=== PATIENT | male | born 1955 | race Caucasian/White ===

== ENCOUNTER → 2023-01-15 14:21 | Outpatient (CLI) | payer MEDICARE, MEDICAID, SELFPAY | PROVIDERS: PCP Nurse Practitioner; Referring Provider Nurse Practitioner; Visit Provider Surgery | DX: G60.3 Idiopathic progressive neuropathy (principal); L97.512 Non-pressure chronic ulcer of other part of right foot with fat layer exposed; L84 Corns and callosities | CPT/HCPCS: 11042; 99203; 99213 ==

== ENCOUNTER → 2023-01-21 13:35 | Outpatient (CLI) | payer MEDICARE, MEDICAID, SELFPAY | PROVIDERS: PCP Nurse Practitioner; Referring Provider Nurse Practitioner; Visit Provider Surgery | DX: G60.3 Idiopathic progressive neuropathy (principal); L97.512 Non-pressure chronic ulcer of other part of right foot with fat layer exposed; R60.0 Localized edema | CPT/HCPCS: 11042 ==

== ENCOUNTER → 2023-01-23 12:58 | Outpatient (CLI) | payer MEDICARE, MEDICAID, SELFPAY | PROVIDERS: PCP Nurse Practitioner; Referring Provider Nurse Practitioner; Visit Provider Physician Assistant | DX: G60.3 Idiopathic progressive neuropathy (principal); L97.512 Non-pressure chronic ulcer of other part of right foot with fat layer exposed; R60.0 Localized edema | CPT/HCPCS: 29445 ==

== ENCOUNTER → 2023-01-30 11:46 | Outpatient (CLI) | payer MEDICARE, MEDICAID, SELFPAY | PROVIDERS: PCP Nurse Practitioner; Referring Provider Nurse Practitioner; Visit Provider Surgery | DX: G60.3 Idiopathic progressive neuropathy (principal); L97.512 Non-pressure chronic ulcer of other part of right foot with fat layer exposed | CPT/HCPCS: 11042; 87070; 87075; 87147; 87205; 99213 ==

== ENCOUNTER → 2023-02-04 13:00 | Outpatient (CLI) | payer MEDICARE, MEDICAID, SELFPAY | PROVIDERS: PCP Nurse Practitioner; Referring Provider Nurse Practitioner; Visit Provider Surgery | DX: G60.3 Idiopathic progressive neuropathy (principal); L97.512 Non-pressure chronic ulcer of other part of right foot with fat layer exposed | CPT/HCPCS: 11042 ==

== ENCOUNTER → 2023-02-12 13:55 | Outpatient (CLI) | payer MEDICARE, MEDICAID, SELFPAY | PROVIDERS: PCP Nurse Practitioner; Referring Provider Nurse Practitioner; Visit Provider Surgery | DX: G62.9 Polyneuropathy, unspecified (principal); L97.512 Non-pressure chronic ulcer of other part of right foot with fat layer exposed; R60.0 Localized edema; I87.2 Venous insufficiency (chronic) (peripheral); I10 Essential (primary) hypertension; F17.210 Nicotine dependence, cigarettes, uncomplicated | CPT/HCPCS: 11042 ==

== ENCOUNTER → 2023-02-18 10:48 | Outpatient (CLI) | payer MEDICARE, MEDICAID, SELFPAY | PROVIDERS: PCP Nurse Practitioner; Referring Provider Nurse Practitioner; Visit Provider Surgery | DX: I87.2 Venous insufficiency (chronic) (peripheral) (principal); L97.512 Non-pressure chronic ulcer of other part of right foot with fat layer exposed; R60.0 Localized edema; L84 Corns and callosities; G57.83 Other specified mononeuropathies of bilateral lower limbs | CPT/HCPCS: 11042; 99212; 99213 ==

== ENCOUNTER → 2023-02-25 11:26 | Outpatient (CLI) | payer MEDICARE, MEDICAID, SELFPAY | PROVIDERS: PCP Nurse Practitioner; Referring Provider Nurse Practitioner; Visit Provider Surgery | DX: G60.3 Idiopathic progressive neuropathy (principal); L97.512 Non-pressure chronic ulcer of other part of right foot with fat layer exposed; I87.2 Venous insufficiency (chronic) (peripheral); L03.115 Cellulitis of right lower limb; F17.210 Nicotine dependence, cigarettes, uncomplicated | CPT/HCPCS: 11042; 99213 ==

== ENCOUNTER → 2023-03-04 11:35 | Outpatient (CLI) | payer MEDICARE, MEDICAID, SELFPAY | PROVIDERS: PCP Nurse Practitioner; Referring Provider Nurse Practitioner; Visit Provider Surgery | DX: G60.3 Idiopathic progressive neuropathy (principal); L97.512 Non-pressure chronic ulcer of other part of right foot with fat layer exposed | CPT/HCPCS: 99212 ==

== ENCOUNTER → 2023-03-11 14:19 | Outpatient (CLI) | payer MEDICARE, MEDICAID, SELFPAY | PROVIDERS: PCP Nurse Practitioner; Referring Provider Nurse Practitioner; Visit Provider Surgery | DX: G60.3 Idiopathic progressive neuropathy (principal); L97.512 Non-pressure chronic ulcer of other part of right foot with fat layer exposed; R60.0 Localized edema | CPT/HCPCS: 11042 ==

== ENCOUNTER → 2023-03-18 11:26 | Outpatient (CLI) | payer MEDICARE, MEDICAID, SELFPAY | PROVIDERS: PCP Nurse Practitioner; Referring Provider Nurse Practitioner; Visit Provider Surgery | DX: G60.3 Idiopathic progressive neuropathy (principal); L97.512 Non-pressure chronic ulcer of other part of right foot with fat layer exposed | CPT/HCPCS: 11042; 99213 ==

== ENCOUNTER → 2023-03-25 11:25 | Outpatient (CLI) | payer MEDICARE, MEDICAID, SELFPAY | PROVIDERS: PCP Nurse Practitioner; Referring Provider Nurse Practitioner; Visit Provider Surgery | DX: G60.3 Idiopathic progressive neuropathy (principal); I87.2 Venous insufficiency (chronic) (peripheral); L97.512 Non-pressure chronic ulcer of other part of right foot with fat layer exposed; R60.0 Localized edema | CPT/HCPCS: 11042 ==

== ENCOUNTER → 2023-04-01 11:06 | Outpatient (CLI) | payer MEDICARE, MEDICAID, SELFPAY | PROVIDERS: PCP Nurse Practitioner; Referring Provider Nurse Practitioner; Visit Provider Surgery | DX: I87.2 Venous insufficiency (chronic) (peripheral) (principal); G60.3 Idiopathic progressive neuropathy; L97.512 Non-pressure chronic ulcer of other part of right foot with fat layer exposed; R60.0 Localized edema; F17.210 Nicotine dependence, cigarettes, uncomplicated | CPT/HCPCS: 15275; Q4196 ==

== ENCOUNTER → 2023-04-08 11:07 | Outpatient (CLI) | payer MEDICARE, MEDICAID, SELFPAY | PROVIDERS: PCP Nurse Practitioner; Referring Provider Nurse Practitioner; Visit Provider Surgery | DX: I87.2 Venous insufficiency (chronic) (peripheral) (principal); G60.3 Idiopathic progressive neuropathy; L97.512 Non-pressure chronic ulcer of other part of right foot with fat layer exposed; R60.0 Localized edema | CPT/HCPCS: 11042 ==

== ENCOUNTER → 2023-04-15 11:24 | Outpatient (CLI) | payer MEDICARE, MEDICAID, SELFPAY | PROVIDERS: PCP Nurse Practitioner; Referring Provider Nurse Practitioner; Visit Provider Surgery | DX: G60.3 Idiopathic progressive neuropathy (principal); L97.512 Non-pressure chronic ulcer of other part of right foot with fat layer exposed; R60.0 Localized edema | CPT/HCPCS: 11042; 99213 ==

== ENCOUNTER → 2023-04-22 11:39 | Outpatient (CLI) | payer MEDICARE, MEDICAID, SELFPAY | PROVIDERS: PCP Nurse Practitioner; Referring Provider Nurse Practitioner; Visit Provider Surgery | DX: G60.3 Idiopathic progressive neuropathy (principal); L97.512 Non-pressure chronic ulcer of other part of right foot with fat layer exposed | CPT/HCPCS: 11042; 99213 ==

== ENCOUNTER → 2023-04-29 11:26 | Outpatient (CLI) | payer MEDICARE, MEDICAID, SELFPAY | LOC: WC 11:27 | PROVIDERS: PCP Nurse Practitioner; Referring Provider Nurse Practitioner; Visit Provider Surgery | DX: G60.3 Idiopathic progressive neuropathy (principal); Z87.891 Personal history of nicotine dependence | CPT/HCPCS: 99213 ==

== ENCOUNTER → 2023-05-06 11:12 | Outpatient (CLI) | payer MEDICARE, MEDICAID, SELFPAY | PROVIDERS: PCP Nurse Practitioner; Referring Provider Nurse Practitioner; Visit Provider Surgery | DX: G62.9 Polyneuropathy, unspecified (principal); I87.2 Venous insufficiency (chronic) (peripheral); S99.911A Unspecified injury of right ankle, initial encounter; I10 Essential (primary) hypertension; F17.211 Nicotine dependence, cigarettes, in remission; Z87.2 Personal history of diseases of the skin and subcutaneous tissue | CPT/HCPCS: 99211; 99213 ==

== ENCOUNTER → 2023-05-21 11:16 | Outpatient (CLI) | payer MEDICARE, MEDICAID, SELFPAY ==
--- NOTE | 2023-05-21 | OV.WND_ITS ---
Progress Note Details Patient Name: Aashish Lord Patient Number: [id number] Clinician: Lien Lama RN Patient Date of : 1955 Physician / Remotely Piloted Vehicle Controller: Olaf Doyle Patient SUBJECTIVE Chief Complaint This information was obtained from the Patient. Concerns of wound on right foot reopening. Allergies No Known Allergies HPI This information was obtained from the Patient. The following HPI elements were documented for the patient's wound: Location: R foot Duration: 03/10/21 Context: neuropathic Associated Signs and Symptoms: none The patient is a 67-year-old male with HTN who returns today for surveillance of a neuropathic ulcer on plantar aspect over 1st metatarsal that was noted to be healed at his visit 04/22/23. Patient recently noted some slight drainage in his sock and was concerned that the ulcer was recurring. He has also had some pain and swelling of his right foot and ankle. He denies having any fever or chills. The patient did twist his ankle a few days ago and has noted some bruising. He does have a prior history of having venous insufficiency. The patient reports a good appetite and is taking some protein supplements. The patient has recently stopped smoking cigarettes. On today's visit the ulcer on the plantar right foot remains healed however there is some slight blood standing of the callus. No sign of infection. He does have some ankle and foot edema but there is no erythema. Patient is wearing new shoes but has not yet seen a sex crimes detective. The patient did sprained is ankle couple of weeks ago. X-rays did not show any evidence for fracture. Family History This information was obtained from the Patient. Unknown History- Father Heart Disease- Mother Hypertension- Mother Social History This information was obtained from the Patient. Former smoker: Quit 04/10/23 Alcohol Use: 4 beers per day Caffeine Use: 3/day Lives in: Apartment independently Marital Status: Single Aashish Lord [id number] 1955 Occupation: Disabled Medical History This information was obtained from the Patient. Patient has a medical history of: Current tobacco smoker (Pt reports quitting 04/10/23) Venous insufficiency Peripheral neuropathy Hypertension Additional Information Does patient have a history of Cancer? Yes? Complete all questions.: No Surgical History This information was obtained from the Patient. Patient has a surgical history of: Hernia repair- Review of Systems (ROS) This information was obtained from the Patient. Complaints and Symptoms Patient com plains of: Cardiovascular (Central): Dyspnea on Exertion Co-Morbid Conditions: Hypertension, Neuropathy , Smoking, Venous Insuffiency Neurological: Loss of Protective Sensation Respiratory: Cough, Shortness of Breath Patient denies com plaints or sy m ptom s related to: Cardiovascular (Central): Chest Pain Cardiovascular (Peripheral) Constitutional Symptoms (General Health): Chills, Fever, Loss of Appetite, Marked Weight Change Integumentary (Hair/Skin/Nails): Hemosiderin Staining Neurological: Weakness Prior Wound History OBJECTIVE Vitals Height/Length: 69 in (175.26 cm), Weight: 263.8 lbs (119.91 kgs), BMI: 39, Temperature: 98.5 ?F (36.94 ?C), Pulse: 81 bpm, Respiratory Rate: 18 breaths/min, Blood Pressure: 132/80 mmHg, Pulse Oximetry: 94 %. Physical Exam Constitutional: Vital signs reviewed and noted. Well developed, well nourished, and in no acute distress. Alert and oriented x3. Respiratory: Even respirations without use of accessory muscles. No intercoastal retractions noted. Even and non labored respiration. Integumentary (Hair, Skin): Aashish Lord [id number] 1955 small blood stain callus over had of 1st metatarsal. Edema right ankle and foot. See wound assessment. Neurological: decreased lower extremity sensation. Psychiatric: Orientation to time, place and person: Normal affect with normal thought pattern. Lower Extremity Assessment Edema Assessment: Left Extremity: Edema is present Compression Device In Use: Yes Device Used Correctly: Yes Device in Use: Compression Stockings Calf Measurement 34 cm from heel with left measurement of 41 cm Ankle Measurement 11 cm from heel with left measurement of 26 cm Foot Measurement 11 cm from great toe with left measurement of 24.5 cm Right Extremity: Edema is present Compression Device In Use: Yes Device Used Correctly: Yes Device in Use: Compression Stockings Calf Measurement 34 cm from heel with right measurement of 42.5 cm Ankle Measurement 11 cm from heel with right measurement of 26.5 cm Foot Measurement 11 cm from great toe with right measurement of 26.5 cm Vascular Assessment Left Extremity Pulses: Dorsalis Pedis: Palpable Right Extremity Pulses: Dorsalis Pedis: Palpable Left Extremity Colors, hair growth, and conditions: Extremity Color: Pigmented Hair Growth on Extremity: No Temperature of Extremity: Warm Capilary Refill: < 3 seconds Erythema: Yes Dependent Rubor: No Hyperpigmentation: Yes Lipodermatosclerosis: No Right Extremity Colors, hair growth, and conditions: Extremity Color: Pigmented Hair Growth on Extremity: No Temperature of Extremity: Warm Capilary Refill: < 3 seconds Erythema: Yes Dependent Rubor: No Hyperpigmentation: Yes Lipodermatosclerosis: No Off-loading: Left off-loading device in use: No Right off-loading device in use: No ASSESSMENT Active Problems ICD-10 S91.301A - Unspecified open wound, right foot, initial encounter (Encounter Diagnosis) G57.83 - Other specified mononeuropathies of bilateral lower limbs I87.2 - Venous insufficiency (chronic) (peripheral) Aashish Lord [id number] 1955 S91.301D - Unspecified open wound, right foot, subsequent encounter L89.612 - Pressure ulcer of right heel, stage 2 (Encounter Diagnosis) R60.0 - Localized edema General Notes no evidence for recurrence of the neuropathic ulcer over the 1st metatarsal head. He does have some right ankle and foot edema. We will order a venous ultrasound of the right lower extremity and contact patient with results. Continue daily skin inspections and returned for any signs of recurrence of the ulcer. PLAN Additional Orders: Topical Treatments Moisturizing lotion to surround skin - Fragrant free lotion to legs. Compression/Edema Control Elevation of leg(s) above the level of the heart when sitting Avoid prolonged standing in one place Knee-high gradient compression stockings Compression Type: - Tubular compression stocking size F to both legs. Other Instructions: - We will look into the referral to podiatry and resend today. Follow-Up Appointments Discharge from Outpatient Services. - No open area at this time. Please call with any questions or concerns. Physician Review: Discussed the Plan of Care @ bedside with - the patient I, as the physician, have reviewed the orders scribed by the center RN's and agree. Scribing Attestation I attest, as the nurse, that I scribed these orders for the physician. Ancillary Services: Cardiovascular: Venous Ultrasound - RLE- evaluate for DVT. We will call with results. Plan of Care: 01. ENSURE/ESTABLISH OPTIMAL BLOOD FLOW : - Complete lower extremity assessment 02. ASSESS FOR/TREAT INFECTION : - Reviewed, not applicable 03. DEBRIDE WEEKLY OR MORE OFTEN PRN : - Reviewed, not applicable 04. OPTIMIZE GLUCOSE CONTROL and NUTRITION : - Reviewed, not applicable 05. OFFLOADING PLAN : - Evaluate plan for offloading - Advise patient to offload the foot ulcer. (i.e. half shoe, surgical shoe, insert, custom shoe, felt and foam, cam walker, multipodus splint, total contact cast, bi-valve cast, posterior splint). - Provide education materials/discuss offloading strategies as appropriate. - Assess tolerance and compliance of offloading. - Order/review radiology tests for suspected infection, significant findings, or when structure present and/or ulcer located over bony prominence. 06. OPTIMIZE HOST FACTORS: - Reviewed, not applicable Aashish Lord [id number] 1955 07. DRESSING SELECTION : - Reviewed, not applicable 08. ADVANCED MODALITIES : - Reviewed, not applicable 09. FALL PREVENTION : - Complete fall assessment. - Provide education materials/discuss prevention strategies as appropriate. 10. PAIN MANAGEMENT : - Reviewed, not applicable - Insensate 11. MEASURABLE GOALS for Wound Healing and/or Hyperbaric Oxygen Therapy : - Reduce edema 12. DURATION/FREQUENCY of Wound Care Visits : - Reviewed, not applicable Electronic Signature(s) Signed By: Date: Olaf Doyle MD 05/21/2023 12:57:49 (PT) Entered By: Olaf Doyle MD on 05/21/2023 12:57:25 (PT) Aashish Lord [id number] 1955
== END ==
LOC: WC 11:17
PROVIDERS: PCP Nurse Practitioner; Referring Provider Nurse Practitioner; Visit Provider Surgery
DX: G57.83 Other specified mononeuropathies of bilateral lower limbs (principal)
CPT/HCPCS: 99213

== ENCOUNTER → 2023-08-13 11:02 | Outpatient (CLI) | payer MEDICARE, MEDICAID, SELFPAY | LOC: WC 11:04 | PROVIDERS: PCP Nurse Practitioner; Referring Provider Podiatrist; Visit Provider Surgery | DX: S90.821A Blister (nonthermal), right foot, initial encounter (principal); R60.0 Localized edema; I87.2 Venous insufficiency (chronic) (peripheral); F17.210 Nicotine dependence, cigarettes, uncomplicated; G62.9 Polyneuropathy, unspecified | CPT/HCPCS: 97602; 99213; 99214 ==

== ENCOUNTER → 2023-08-20 13:52 | Outpatient (CLI) | payer MEDICARE, MEDICAID, SELFPAY | LOC: WC 13:52 | PROVIDERS: PCP Nurse Practitioner; Referring Provider Nurse Practitioner; Visit Provider Surgery | DX: S90.821D Blister (nonthermal), right foot, subsequent encounter (principal); G57.83 Other specified mononeuropathies of bilateral lower limbs; I10 Essential (primary) hypertension | CPT/HCPCS: 99213 ==